=== PATIENT | female | born 1955 ===

== ENCOUNTER 2022-11-09 09:10 | Outpatient (OUT) | payer MEDICARE, OTHER, SELFPAY ==
--- NOTE | 2022-11-09 09:20 | XR_ITS ---
[place] [id number] Patient Name: MARINA JARAMILLO MRN: [id number] date: 1955 Sex: F Assigned Patient Location: [facility] Current Patient Location: [facility] Accession/Order Number: [id number] Exam Date: 11/09/2022 09:25 Report Date: 11/09/2022 10:00 At the request of: HEMANTH SUAZO Procedure: XR knee LT 4V EXAM: XR knee LT 4V HISTORY: Acute Pain Left Knee M25.562 COMPARISON: None. TECHNIQUE: 4 views Findings/impression: Mild to moderate degenerative changes of the medial compartment knee. No acute fracture or dislocation. Soft tissue swelling. Electronically authenticated by: ALESIA WEST Date: 11/09/2022 10:00
== END 2022-11-09 09:11 | disposition home or self-care (01) ==
LOC: RAD 09:10
PROVIDERS: Visit Provider Orthopaedic Surgery
DX: M25.562 Pain in left knee (principal)
CPT/HCPCS: 73564